=== PATIENT | female | born 1950 | race Hispanic/Latino ===

== ENCOUNTER 2016-10-06 19:04 | Inpatient (IN) | payer MEDICARE, OTHER ==
--- NOTE | 2016-10-06 19:15 | ED PDOC ---
Arrival/HPI <Ji Huynh - Last Filed: 10/06/16 21:29> - General Historian: Patient <Nita Simeon - Last Filed: 10/07/16 01:23> - General Time Seen by Provider: 10/06/16 19:10 - History of Present Illness Narrative History of Present Illness (Text): 10/06/16 19:12 66yo female bib the for psych evaluation. The notes history of psychiatric sickness. states she became very anxious and agitated at home this morning. states patient takes her medication. Denies drug and alcohol use. Denies hallucination, SI/HI, any somatic complaint. (Nita Simeon) Past Medical History - Provider Review Nursing Documentation Reviewed: Yes - Infectious Disease Hx of Infectious Diseases: None - Tetanus Immunization Tetanus Immunization: Unknown - Past Medical History Past Medical History: No Previous - Cardiac Hx Pacemaker: No - Neurological Hx Paralysis: No - Hematological/Oncological Hx Blood Transfusions: No Hx Blood Transfusion Reaction: No - Musculoskeletal/Rheumatological Hx Musculoskeletal Disorders: No - Psychiatric Hx Emotional Abuse: No Hx Physical Abuse: No Hx Substance Use: No - Past Surgical History Past Surgical History: No Previous - Surgical History Other/Comment: Anal Fistula repair - Anesthesia Hx Anesthesia Reactions: No Hx Malignant Hyperthermia: No - Suicidal Assessment Feels Threatened In Home Enviroment: No <Nita Simeon - Last Filed: 10/07/16 01:23> Family/Social History - Physician Review Nursing Documentation Reviewed: Yes Family/Social History: Unknown Family HX Smoking Status: Light Smoker < 10 Cigarettes Daily Hx Alcohol Use: No Hx Substance Use: No <Nita Simeon - Last Filed: 10/07/16 01:23> Allergies/Home Meds <Ji Huynh - Last Filed: 10/06/16 21:29> <Nita Simeon - Last Filed: 10/07/16 01:23> Allergies/Adverse Reactions: Allergies No Known Allergies Allergy (Verified 01/25/14 07:51) Home Medications: Home Meds Medication Instructions Recorded Confirmed Divalproex [Depakote] 500 mg PO BID 01/25/14 10/06/16 QUEtiapine [SEROquel] 300 mg PO BID 01/25/14 10/06/16 Polyethylene Glycol 3350 [Miralax] 17 gm PO DAILY 04/11/16 10/06/16 ALPRAZolam [Xanax] 1 mg PO QAM 10/06/16 10/06/16 ALPRAZolam [Xanax] 3 mg PO HS 10/06/16 10/06/16 Review of Systems - Physician Review All systems were reviewed & negative as marked: Yes - Review of Systems Constitutional: Normal Eyes: Normal ENT: Normal Respiratory: Normal Cardiovascular: Normal Gastrointestinal: Normal Genitourinary Female: Normal Musculoskeletal: Normal Skin: Normal Neurological: Normal Endocrine: Normal Hemo/Lymphatic: Normal Psychiatric: Anxiety <Diru,Happiness A - Last Filed: 10/07/16 01:23> Physical Exam Vital Signs Reviewed: Yes Temperature: Afebrile Blood Pressure: Normal Pulse: Regular Respiratory Rate: Normal Appearance: Positive for: Well-Appearing, Non-Toxic, Comfortable Pain Distress: None Mental Status: Positive for: Alert and Oriented X 3 - Systems Exam Head: Present: Atraumatic, Normocephalic Pupils: Present: PERRL Extroacular Muscles: Present: EOMI Conjunctiva: Present: Normal Mouth: Present: Moist Mucous Membranes Neck: Present: Normal Range of Motion Respiratory/Chest: Present: Clear to Auscultation, Good Air Exchange. No: Respiratory Distress, Accessory Muscle Use Cardiovascular: Present: Regular Rate and Rhythm, Normal S1, S2. No: Murmurs Abdomen: Present: Normal Bowel Sounds. No: Tenderness, Distention, Peritoneal Signs Back: Present: Normal Inspection Upper Extremity: Present: Normal Inspection. No: Cyanosis, Edema Lower Extremity: Present: Normal Inspection. No: Edema Neurological: Present: GCS=15, CN II-XII Intact, Speech Normal Skin: Present: Warm, Dry, Normal Color. No: Rashes Psychiatric: Present: Alert, Oriented x 3, Normal Insight, Normal Concentration , Anxious, Agitated <Diru,Happiness A - Last Filed: 10/07/16 01:23> Vital Signs Temp Pulse Pulse Resp BP Pulse Ox 10/07/16 01:14 98.0 F 88 16 132/72 99 10/06/16 23:37 97.9 F 94 H 18 148/87 100 10/06/16 22:20 97.6 F 103 H 103 H 20 169/92 H 10/06/16 21:23 103 H 20 169/92 H 98 10/06/16 19:35 97.6 F 115 H 25 H 178/103 H 99 Medical Decision Making <Ji Huynh - Last Filed: 10/06/16 21:29> <Nita Simeon - Last Filed: 10/07/16 01:23> ED Course and Treatment: 10/06/16 20:52 66yo female bib the for psych evaluation. Patient was agitated on arrival. PES screener was called immediately to evaluate pt. He saw pt in ED. [facility] Dr. Vidal requested that pt be screened by [facility] screener. Pt have hyponatremia on evaluation of lab. She was given 3% sodium and plan was to admit pt to correct hyponatremia. Case was DW Dr. Belle and he accepted pt for admission. Per the resident, pt's and the patient declined admission. Threatening to leave. Pt was advised that she will be screened by PES screener. Both patient and her later changed they mind. Agreed to be admitted for hyponatermia. The resident , Tony was made aware of the decision. (Nita Simeon) - Lab Interpretations Lab Results: 10/06/16 19:56 10/06/16 19:56 Lab Results 10/06/16 19:56: Alcohol, Quantitative < 10 10/06/16 19:56: Salicylates < 1 L, Acetaminophen < 10.0 L 10/06/16 19:56: Sodium 118 L*, Potassium 4.4, Chloride 83 L, Carbon Dioxide 25, Anion Gap 14, BUN 12, Creatinine 0.7, Est GFR ( Amer) > 60, Est GFR (Non- Af Amer) > 60, Random Glucose 94, Calcium 9.3, Total Bilirubin 0.6, AST 24, ALT 30, Alkaline Phosphatase 77, Total Protein 7.7, Albumin 4.2, Globulin 3.5, Albumin/Globulin Ratio 1.2 10/06/16 19:56: WBC 10.4 D, RBC 4.55, Hgb 12.4, Hct 34.9 L, MCV 76.7 L, MCH 27.3, MCHC 35.5, RDW 14.6 H, Plt Count 278, MPV 9.4, Gran % 67.2, Lymph % (Auto ) 25.1, Tripp % (Auto) 6.9 H, Eos % (Auto) 0.7 L, Baso % (Auto) 0.1, Gran # 7.00 H, Lymph # 2.6, Tripp # 0.7 H, Eos # 0.1, Baso # 0.01 - Medication Orders Current Medication Orders: Sodium Chloride (Hypertonic Saline 3%) 500 mls @ 50 mls/hr IV .Q10H [facility] Last Admin: 10/06/16 23:22 Dose: 50 mls/hr Discontinued Medications Sodium Chloride (Sodium Chloride 0.45%) 1,000 mls @ 50 mls/hr IV .Q20H [facility] Last Admin: 10/06/16 21:30 Dose: 50 mls/hr Lorazepam (Ativan) 1 mg IM ONCE ONE PRN Reason: Protocol Stop: 10/06/16 19:20 Last Admin: 10/06/16 19:21 Dose: 1 mg Pneumococcal Polyvalent Vaccine (Pneumovax 23 Vaccine) 0.5 ml IM .ONCE ONE Stop: 10/06/16 22:28 Last Admin: 10/06/16 23:25 Dose: - PA / [employer] / Resident Statement DAVID has reviewed & agrees with the documentation as recorded. DAVID has examined the patient and agrees with the treatment plan. <Ji Huynh - Last Filed: 10/06/16 21:29> Disposition/Present on Arrival <Ji Huynh - Last Filed: 10/06/16 21:29> - Present on Arrival Any Indicators Present on Arrival: No History of DVT/PE: No History of Uncontrolled Diabetes: No Urinary Catheter: No History Surgical Site Infection Following: None - Disposition Have Diagnosis and Disposition been Completed?: Yes Disposition Time: 22:00 <Nita Simeon - Last Filed: 10/07/16 01:23> - Disposition Diagnosis: Hyponatremia, Bipolar 1 disorder Disposition: HOSPITALIZED Patient Problems: Current Active Problems Problem Status Onset Bipolar 1 disorder Acute Hyponatremia Acute Condition: FAIR
[2016-10-06 20:05] LABS: ADD MANUAL DIFF? NO
[2016-10-06 20:13] LABS: BASO # 0.01 [, K/mm3] (0.0-2.0); BASO % 0.1 % (0.0-3.0); EOS # 0.1 (0.0-0.7); EOS % 0.7 % (1.5-5.0); GRAN % 67.2 % (50.0-68.0); HEMATOCRIT 34.9 % (36.0-48.0); LYMPH # 2.6 (1.2-3.4); LYMPH % 25.1 % (22.0-35.0); MEAN CELL VOLUME 76.7 fL (80.0-105.0); MEAN CORPUSCULAR HEMOGLOBIN 27.3 pg (25.0-35.0); MEAN CORPUSCULAR HGB CONC 35.5 g/dl (31.0-37.0); MEAN PLATELET VOLUME 9.4 fl (7.0-11.0); MONO # 0.7 (0.1-0.6); MONO % 6.9 % (1.0-6.0); PLATELET COUNT 278 [, 10^3/uL] (120.0-450.0); RED CELL DISTRIBUTION WIDTH 14.6 % (11.5-14.5); WHITE BLOOD COUNT 10.4 [, 10^3/ul] (4.5-11.0)
[2016-10-06 20:32] LABS: ALB/GLOB RATIO 1.2 (1.1-1.8); ALKALINE PHOSPHATASE 77 U/L (38-133); ALT/SGPT 30 U/L (7-56); AST/SGOT 24 U/L (15-39); BILIRUBIN,TOTAL 0.6 mg/dL (0.2-1.3); BLOOD UREA NITROGEN 12 mg/dL (7-21); CALCIUM 9.3 mg/dL (8.4-10.5); CARBON DIOXIDE 25 mmol/L (21-33); CHLORIDE 83 mmol/L (98-107); GFR AFRICAN-AMERICAN > 60; GLUCOSE,RANDOM 94 mg/dL (70-110); POTASSIUM 4.4 mmol/L (3.6-5.0); TOTAL PROTEIN 7.7 g/dL (5.8-8.3)
[2016-10-06 20:39] LABS: SODIUM 118 mmol/L (132-148)
[2016-10-06] MEDS ORDERED: Sodium Chloride 0.45% 1,000 ML IV SCH (20:45)
[2016-10-06 22:22] LABS: URINE BILIRUBIN NEGATIVE (NEGATIVE); URINE BLOOD LARGE (NEGATIVE); URINE GLUCOSE (UA) NEGATIVE (NEGATIVE); URINE KETONE NEGATIVE (NEGATIVE); URINE LEUKOCYTE ESTERASE MODERATE Leu/uL (NEGATIVE); URINE PROTEIN NEGATIVE mg/dL (<30 mg/dL); URINE UROBILINOGEN 0.2 E.U./dL (<1 E.U./dL)
[2016-10-06 22:23] LABS: URINE APPEARANCE SL CLOUDY (CLEAR); URINE COLOR YELLOW (YELLOW)
[2016-10-06 22:27] VITALS: BMI 30.9
[2016-10-06] MEDS ORDERED: Pneumococcal 23-Valent Vaccine IM ONE (22:27)
[2016-10-06] MEDS ORDERED: Sodium Chloride 3% 500 ML IV SCH (22:30)
[2016-10-07] MEDS ORDERED: Sodium Chloride 0.9% 1,000 ML IV SCH (02:15)
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
[2016-10-07 04:28] LABS: BLOOD UREA NITROGEN 10 mg/dL (7-21); CALCIUM 9.6 mg/dL (8.4-10.5); CARBON DIOXIDE 28 mmol/L (21-33); CHLORIDE 91 mmol/L (98-107); GFR AFRICAN-AMERICAN > 60; GLUCOSE,RANDOM 90 mg/dL (70-110); POTASSIUM 3.9 mmol/L (3.6-5.0); SODIUM 128 mmol/L (132-148)
[2016-10-07 08:52] LABS: BLOOD UREA NITROGEN 8 mg/dL (7-21); CALCIUM 9.5 mg/dL (8.4-10.5); CARBON DIOXIDE 28 mmol/L (21-33); CHLORIDE 92 mmol/L (98-107); GFR AFRICAN-AMERICAN > 60; GLUCOSE,RANDOM 106 mg/dL (70-110); POTASSIUM 4.3 mmol/L (3.6-5.0); SODIUM 128 mmol/L (132-148)
[2016-10-07] MEDS: Divalproex 500 mg DR(BID formulation) PO SCH ×2 (10:43→18:39)
[2016-10-07] MEDS: POLYETHYLENE GLYCOL 3350 17 GM/Dose PACKET PO SCH (10:44)
[2016-10-07 11:01] LABS: BLOOD UREA NITROGEN 9 mg/dL (7-21); CALCIUM 9.4 mg/dL (8.4-10.5); CARBON DIOXIDE 27 mmol/L (21-33); CHLORIDE 92 mmol/L (98-107); GFR AFRICAN-AMERICAN > 60; GLUCOSE,RANDOM 116 mg/dL (70-110); POTASSIUM 4.5 mmol/L (3.6-5.0); SODIUM 128 mmol/L (132-148)
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
[2016-10-07 14:38] LABS: BLOOD UREA NITROGEN 9 mg/dL (7-21); CALCIUM 9.3 mg/dL (8.4-10.5); CARBON DIOXIDE 27 mmol/L (21-33); CHLORIDE 91 mmol/L (98-107); GFR AFRICAN-AMERICAN > 60; GLUCOSE,RANDOM 123 mg/dL (70-110); POTASSIUM 4.4 mmol/L (3.6-5.0); SODIUM 127 mmol/L (132-148)
--- NOTE | 2016-10-07 14:55 | CARD ---
APPROVED REPORT EKG Measurement Heart [id number] <Conclusion> Normal sinus rhythm Biatrial enlargement Abnormal ECG
[2016-10-07 15:22] LABS: BLOOD UREA NITROGEN 9 mg/dL (7-21); CALCIUM 9.4 mg/dL (8.4-10.5); CARBON DIOXIDE 29 mmol/L (21-33); CHLORIDE 92 mmol/L (98-107); GFR AFRICAN-AMERICAN > 60; GLUCOSE,RANDOM 91 mg/dL (70-110); POTASSIUM 4.6 mmol/L (3.6-5.0); SODIUM 128 mmol/L (132-148)
[2016-10-07 21:09] LABS: BLOOD UREA NITROGEN 11 mg/dL (7-21); CALCIUM 9.9 mg/dL (8.4-10.5); CARBON DIOXIDE 29 mmol/L (21-33); CHLORIDE 91 mmol/L (98-107); GFR AFRICAN-AMERICAN > 60; GLUCOSE,RANDOM 87 mg/dL (70-110); POTASSIUM 4.3 mmol/L (3.6-5.0); SODIUM 129 mmol/L (132-148)
[2016-10-08 05:50] VITALS: O2SAT 100
[2016-10-08 06:05] LABS: ADD MANUAL DIFF? NO
[2016-10-08 06:43] LABS: CALCIUM 9.1 mg/dL (8.4-10.5); POTASSIUM 4.3 mmol/L (3.6-5.0)
[2016-10-08 07:22] LABS: BASO # 0.02 [, K/mm3] (0.0-2.0); BASO % 0.3 % (0.0-3.0); EOS # 0.1 (0.0-0.7); GRAN # 2.65 (1.4-6.5); GRAN % 43.5 % (50.0-68.0); HEMATOCRIT 37.7 % (36.0-48.0); LYMPH # 2.7 (1.2-3.4); LYMPH % 44.9 % (22.0-35.0); MEAN CELL VOLUME 80.4 fL (80.0-105.0); MEAN CORPUSCULAR HEMOGLOBIN 27.1 pg (25.0-35.0); MEAN CORPUSCULAR HGB CONC 33.7 g/dl (31.0-37.0); MEAN PLATELET VOLUME 10.1 fl (7.0-11.0); MONO # 0.6 (0.1-0.6); MONO % 9.3 % (1.0-6.0); PLATELET COUNT 211 [, 10^3/uL] (120.0-450.0); RED CELL DISTRIBUTION WIDTH 15.6 % (11.5-14.5); WHITE BLOOD COUNT 6.1 [, 10^3/ul] (4.5-11.0)
--- NOTE | 2016-10-08 08:53 | CON ---
DATE: 10/07/2016 The patient is a 66-year-old female with a prior psychiatric history, likely schizoaffective versus bipolar disorder, multiple hospitalizations, as well as poor compliance with medications of De pakote, Seroquel, and Xanax prescribed by Dr. Cox. No history of reported suicide attempts who was brought in with her to the Emergency Room on 10/06/2016, as the patient has been having diffic ulty with sleeping and presenting loud with rapid speech and anxiety. Reports also indicate that letitia garcia noted that the patient would drink a lot of water at home as well. While they were in the Emergency Room, they did demand to be discharged from the Emergency Room befor e comprehensive testing and recommendations could be established, however, eventually agreed to be me dically hospitalized after the patient was found to have notable hyponatremia. During this time, rd or to this decision, she was to be screened by [facility] because this provider recei eulogio information about her disorganization, as well as the fact that the patient reportedly was recent ly discharged from [place] in the last few weeks. I meet with the patient at bedside today, and the patient is a little calmer, a little bit more coher ent than her reported presentation in the Emergency Room and by the clinician who signed out to me ye sterday. She is aware that it is October and that it is 2016, and that she is in a hospital. However, s he does not know that she was hospitalized for hyponatremia. She believes it was because she has not been able to sleep, and the patient repeatedly requests that I provide her "a shot to help me sleep. " The patient reports that she has been taking the medications of Depakote and Seroquel as prescribe d. However, she is still not sleeping at all at night. She indicates that she is very tired and has been irritable and agitated because of her fatigue, and that she desperately would like to sleep. She denies any hopelessness or suicidal thoughts, but she does admit to some depression and anxiety r elated to her 's diagnosis of bone cancer. She indicates that he lost his right hand because of this, and that she is "desperate for him." Her thought processes are somewhat scattered, but she can be redirected with general consistency of responses, and her main concern is her inability to sle ep. Nursing reports indicate that the patient has been loud on the unit, was ____ yelling in the la lway, but calmed down with staff redirection, and generally appeared a little bizarre. The patient w as not hallucinating and denies hallucinations when I spoke with her today. She does appear anxious, stressed, highly emotional, and would be difficult to maintain if not in an enclosed setting is my i ntuition. Her insight and judgment are considered to be poor. VITAL SIGNS: Reviewed. They are within normal limits at 6:00 a.m. this morning. LABORATORIES: Reviewed. Notably, the patient came in with a sodium of 118, up to 128 by 8 a.m. this morning. Otherwise, her chemistry panel is within normal limits except for chloride was just 83. S he does show a large amount of blood and leukocyte esterase, and moderate amount in her urine, as wel l, and UDS is only positive for benzos. RELEVANT MEDICATION: Psychiatric medications include Xanax 1 mg in the morning and 3 mg at night, De pakote 500 mg b.i.d., Seroquel 300 mg p.o. b.i.d. IMPRESSION: The patient does have a history of, as per clinician who spoke with me in the Emergency Room, a recent long-term hospitalization at [place] in which she was just discharged a week or two ago. Likely has bipolar disorder, mixed episode versus schizoaffective disorder, mixed episode. I cannot rule out the contribution of delirium confounding the diagnosis of her current presentation. The patient does have notable electrolyte balance and urine abnormalities. RECOMMENDATIONS: I am asking should continue to treat the patient's hyponatremia and rule out medica l causes, although it does appear that the patient does have a history of excessive water intake per . However, it is unclear if her is a good historian, as he appeared to also want the patient to be discharged yesterday from the Emergency Room without full medical treatment of his . In this regard, it is difficult to completely trust his account of her behavior, as his judgment a ppeared to be impaired in this respect. Again, medicine should follow up on determining whether there are medical causes to the patient's hyp onatremia. Please note that hyponatremia may be associated rarely with Depakote and with Seroquel. However, there is no indication that these medications are causing this sort of side effect at this time, and will continue with them, and increase the Seroquel to 300 in the morning and 400 at night. I would also like to increase the Depakote, but review of the records does not indicate or does not show that Depakote level has been obtained for some reason. Thus, provider will order Depakote level and go from there. Please note that whenever the patient comes to the Emergency Room with altered mental status, deranged metabolites, Depakote level should always be checked, especially if she is a poor historian and has poor impulse control. The patient is a candidate for the psychiatric unit once she is medically cleared. However, it is un clear whether she will be willing to sign in to the psychiatric unit at this time, and this provider has doubts about her capacity to understand the pros and cons of a voluntary psychiatric admission. We will consider [facility] screening once she is medically cleared in this respect. As of now, the patient does not have capacity to sign out AMA, and needs to be maintained on a 1:1. Taylor Vidal MD cc: [id number] TT: 10/07/2016 11:34:01 Confirmation # [id number] Dictation # [id number] jn
[2016-10-08] MEDS: Divalproex 500 mg DR(BID formulation) PO SCH ×2 (09:56→18:03)
[2016-10-08] MEDS: POLYETHYLENE GLYCOL 3350 17 GM/Dose PACKET PO SCH (09:57)
[2016-10-08 11:32] LABS: URINE APPEARANCE CLEAR (CLEAR); URINE BILIRUBIN NEGATIVE (NEGATIVE); URINE BLOOD NEGATIVE (NEGATIVE); URINE COLOR YELLOW (YELLOW); URINE GLUCOSE (UA) NEGATIVE (NEGATIVE); URINE KETONE NEGATIVE (NEGATIVE); URINE LEUKOCYTE ESTERASE NEGATIVE Leu/uL (NEGATIVE); URINE PROTEIN NEGATIVE mg/dL (<30 mg/dL); URINE UROBILINOGEN 0.2 E.U./dL (<1 E.U./dL)
--- NOTE | 2016-10-08 11:39 | CP.PCM.PN ---
Subjective - Date & Time of Evaluation Date of Evaluation: 10/08/16 Time of Evaluation: 11:28 - Subjective Subjective: Follow up Nephrology Consultation Note Assessment: hypo-osmolar euvolemic hyponatremia predominantly due to increased water intake and possibly some contribution by her psych meds Bipolar Disorder blood on dipstick but very few RBC suggests myoglobinuria less likely hemoglobinuria (as stable and normal hb) Mild Acute kidney injury ? hemodynamic Plan continue with current oral water restriction. her Serum Na has improved. due to rise in her S.creat, will give Normal saline 1 L Monitor Input/Output. will repeat UA and urine Na, osmol. if continue to have blood on dipstick without RBC then check CPK level. Further work up/management for bipolar disorder as per primary team. Thanks for allowing me to participate in care of your patient. Please call if any Qs. f/up in office with me [address] Alexis Dixon ([address] [place] [address]) Office: [phone] Subjective: Noted events overnight. Patients feels okay. Denies chest pain, palpitation, shortness of breath, leg swelling. on oral fluid restriction 1000 mL/day Physical Examination: General Appearance: Comfortable, in no acute respiratory distress, co- operative. Vitals reviewed and noted as below Lungs: Normal respiratory rate/effort. Breath sounds bilateral equal and clear Heart: Normal rate. s1s2 normal. No rub or gallop. Extremities: no edema. Neurological: Patient is alert, awake and oriented to person, place and time. No focal deficit. Strength bilateral appropriate and equal Skin: Warm and dry. Normal turgor. No rash. Palpitation: Normal elasticity for age Abdomen: Abdomen is soft. Bowel sounds +. There is no abdominal tenderness, no guarding/rigidity or organomegaly : kidney or bladder not palpable Labs/imaging reviewed. Past medical history, past surgical history, family history, social history, allergy reviewed and noted as below Objective - Vital Signs/Intake and Output Vital Signs (last 24 hours): Temp Pulse Resp BP Pulse Ox 97.5 F L 89 20 117/66 100 10/08/16 05:49 10/08/16 10:00 10/08/16 05:49 10/08/16 05:49 10/08/16 05:49 Intake and Output: 10/08/16 10/08/16 06:59 18:59 Intake Total 0 Balance 0 - Medications Medications: Current Medications Alprazolam (Xanax) 1 mg PO QAM [facility] PRN Reason: Protocol Last Admin: 10/08/16 09:57 Dose: 1 mg Alprazolam (Xanax) 3 mg PO HS [facility] PRN Reason: Protocol Last Admin: 10/07/16 21:05 Dose: 3 mg Divalproex Sodium (Depakote Dr(*Bid*)) 500 mg PO BID [facility] Last Admin: 10/08/16 09:56 Dose: 500 mg Haloperidol (Haldol) 2 mg PO Q6 PRN; Protocol PRN Reason: Agitation Polyethylene Glycol (Miralax) 17 gm PO DAILY [facility] Last Admin: 10/08/16 09:57 Dose: 17 gm Quetiapine Fumarate (Seroquel) 300 mg PO QAM [facility] Last Admin: 10/08/16 09:57 Dose: 300 mg Quetiapine Fumarate (Seroquel) [address] [facility] PRN Reason: Protocol Last Admin: 10/07/16 21:05 Dose: 400 mg - Labs Labs: 10/08/16 05:30 10/08/16 05:30
[2016-10-08] MEDS: Sodium Chloride 0.9% 1,000 ML IV SCH ×2 (12:37→22:20)
--- NOTE | 2016-10-08 15:20 | CP.PCM.PN ---
<Nubia Onofre - Last Filed: 10/08/16 15:39> Subjective - Date & Time of Evaluation Date of Evaluation: 10/08/16 Time of Evaluation: 07:40 - Subjective Subjective: Pt seen and evaluated at bedside. Pt denies chest pain, N/V, SOB, abdominal pain, hematuria, or pyuria. Afebrile overnight. As per nursing, drank 900 ml of water this am. Objective - Vital Signs/Intake and Output Vital Signs (last 24 hours): Temp Pulse Resp BP Pulse Ox 98.3 F 93 H 20 110/79 100 10/08/16 12:00 10/08/16 14:00 10/08/16 12:00 10/08/16 12:00 10/08/16 05:49 Intake and Output: 10/08/16 10/08/16 06:59 18:59 Intake Total 0 720 Balance 0 720 - Medications Medications: Current Medications Alprazolam (Xanax) 1 mg PO QAM [facility] PRN Reason: Protocol Last Admin: 10/08/16 09:57 Dose: 1 mg Alprazolam (Xanax) 3 mg PO [facility] PRN Reason: Protocol Last Admin: 10/07/16 21:05 Dose: 3 mg Divalproex Sodium (Depakote Dr(*Bid*)) 500 mg PO BID [facility] Last Admin: 10/08/16 09:56 Dose: 500 mg Haloperidol (Haldol) 2 mg PO Q6 PRN; Protocol PRN Reason: Agitation Sodium Chloride (Sodium Chloride 0.9%) 1,000 mls @ 100 mls/hr IV .Q10H [facility] Last Admin: 10/08/16 12:37 Dose: 100 mls/hr Polyethylene Glycol (Miralax) 17 gm PO DAILY [facility] Last Admin: 10/08/16 09:57 Dose: 17 gm Quetiapine Fumarate (Seroquel) 300 mg PO QAM [facility] Last Admin: 10/08/16 09:57 Dose: 300 mg Quetiapine Fumarate (Seroquel) 400 mg PO HS [facility] PRN Reason: Protocol Last Admin: 10/07/16 21:05 Dose: 400 mg - Labs Labs: 10/08/16 05:30 10/08/16 05:30 - Constitutional Appears: No Acute Distress, Confused - Head Exam Head Exam: ATRAUMATIC, NORMOCEPHALIC - Eye Exam Eye Exam: EOMI, Normal appearance - Respiratory Exam Respiratory Exam: Clear to Ausculation Bilateral, NORMAL BREATHING PATTERN - Cardiovascular Exam Cardiovascular Exam: +S1, +S2. absent: Tachycardia - GI/Abdominal Exam GI & Abdominal Exam: Soft. absent: Tenderness - Exam External exam: absent: Ecchymosis, Lacerations - Extremities Exam Extremities Exam: Normal Capillary Refill. absent: Tenderness - Neurological Exam Neurological Exam: Alert, Awake - Skin Skin Exam: Intact, Warm Assessment and Plan - Assessment and Plan (Free Text) Plan: 66 year old female with a PMH of psych illness who is brought in by her for sandeep. Admitted for hyponatremia of 118. 1. 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 Sánchez consulted Neurochecks q4x24 Vitals q4 Seizure precautions Pending renal U/S NS IV 1L 100ml/hr qd urine osmolarity is 174, serum osmol is 270, and random urine sodium is 10. 2. Psych illness Continue home medications Psych Dr. Domínguez consulted 3. Constipation Continue home miralax DVT ppx: SCDs refused by pt today, so heparin 5000u q12 ordered Patient was seen and examined and case/plan was discussed at length with attending physician. <Miceky Castro - Last Filed: 10/08/16 16:19> Objective - Vital Signs/Intake and Output Vital Signs (last 24 hours): Temp Pulse Resp BP Pulse Ox 98.3 F 93 H 20 110/79 100 10/08/16 12:00 10/08/16 14:00 10/08/16 12:00 10/08/16 12:00 10/08/16 05:49 Intake and Output: 10/08/16 10/08/16 06:59 18:59 Intake Total 0 720 Balance 0 720 - Medications Medications: Current Medications Alprazolam (Xanax) 1 mg PO QAM [facility] PRN Reason: Protocol Last Admin: 10/08/16 09:57 Dose: 1 mg Alprazolam (Xanax) 3 mg PO HS [facility] PRN Reason: Protocol Last Admin: 10/07/16 21:05 Dose: 3 mg Divalproex Sodium (Gabriele Dwyer(*Bid*)) 500 mg PO BID [facility] Last Admin: 10/08/16 09:56 Dose: 500 mg Haloperidol (Haldol) 2 mg PO Q6 PRN; Protocol PRN Reason: Agitation Heparin Sodium (Porcine) (Heparin) 5,000 units SC Q12 [facility] PRN Reason: Protocol Sodium Chloride (Sodium Chloride 0.9%) 1,000 mls @ 100 mls/hr IV .Q10H [facility] Last Admin: 10/08/16 12:37 Dose: 100 mls/hr Polyethylene Glycol (Miralax) 17 gm PO DAILY [facility] Last Admin: 10/08/16 09:57 Dose: 17 gm Quetiapine Fumarate (Seroquel) 300 mg PO QAM [facility] Last Admin: 10/08/16 09:57 Dose: 300 mg Quetiapine Fumarate (Seroquel) 400 mg PO HS [facility] PRN Reason: Protocol Last Admin: 10/07/16 21:05 Dose: 400 mg - Labs Labs: 10/08/16 05:30 10/08/16 05:30 Attending/Attestation - Attestation I have personally seen and examined this patient.: Yes I have fully participated in the care of the patient.: Yes I have reviewed all pertinent clinical information, including history, physical exam and plan: Yes Notes (Text): 10/08/16 16:15 66 year old female with past medical history of prior psychiatric illness (? bipolar) who was brought in by her for altered mental status. 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 Her sodium has improved to 130 today. Continue with fluid restriction as per nephrology. She was also seen by psychiatrist. I spoke with Dr. Domínguez as well as the patient's who is currently at bedside. Her mental status has improved to baseline as per . Today she has mild ESTEFANI. She is started on iv fluids and renal ultrasound was ordered which is negative. is at bedside and questions were answered. Possible d/c planning by tomorrow if labs continue to improve. Mickey Castro MD Hospitalist.
--- NOTE | 2016-10-08 16:05 | US ---
PROCEDURE: Ultrasound of the Kidneys HISTORY: Acute Kidney Injury COMPARISON: None available. TECHNIQUE: Sonogram of the kidneys. FINDINGS: RIGHT KIDNEY: Measures: 9.3 x 5.2 x 3.7 cm. Normal in size, contour and echogenicity. No stone, solid mass lesion or hydronephrosis visualized. LEFT KIDNEY: Measures: 10.1 x 5.4 x 4.7 cm. Normal in size, contour and echogenicity. No stone, solid mass lesion or hydronephrosis visualized. OTHER FINDINGS: None. IMPRESSION: Unremarkable renal sonogram.
--- NOTE | 2016-10-08 18:32 | PN ---
DATE: 10/08/2016 Shortly, the patient is a 66-year-old female with prior psychiatric history, most likely sc hizoaffective disorder versus bipolar disorder, multiple hospitalizations into the psychiatric inpati ent unit as well, as per Dr. Vidal's notes, poor compliance with medication Depakote, Seroquel and Xa nax prescribed by Dr. Cox. The patient does not have history of suicidal attempts. The patient wa s admitted to the medical floor for evaluation of low sodium level and possible psychogenic polydipsi a. The patient was seen initially by Dr. Vidal for altered mental status. A 1:1 was recommended and doses of medications were adjusted. The patient was followed up by this newswriter. Discussed with the medical team as well as nursing staff. As per nursing staff report, the patient does not exhibit an y agitated or aggressive behavior. Thought process is coherent. The patient has some neurocognitive disorder and child-like demeanor. The patient reported that she does feel better. The patient is a jensen of her medical issues. The patient knows that she is on water restriction. The patient knows t hat she needs to take only 1 liter a day max. The patient also reported that she is compliant with t he medications. She does not want to sign herself into the psychiatric inpatient unit. The patient wants to be discharged back home but, as per medical team, her sodium level is not within normal limi ts and most likely patient will stay here in the hospital for another day. VITAL SIGNS: Reviewed. Temperature 98.3, pulse is 93, blood pressure 110/79, respirations 20, oxyge n saturation is 100. MEDICATIONS: Reviewed. Xanax 1 mg in the morning time and 3 mg at the nighttime, Depakote 500 mg tw ice a day, Haldol 2 mg q. 6 hours as needed (the patient did not have any injection of Haldol or p.o. Haldol), MiraLax, Seroquel was increased to 400 mg at the nighttime and 300 mg in the morning time, and sodium chloride. LABORATORIES: Reviewed. Chemistry: Sodium was 130 today. Urinalysis: Leukocyte esterase is high, blood is large. Toxicology: Benzodiazepines are positive and Depakote level was 25. Most likely t he patient was not compliant with the medications. MENTAL STATUS EXAMINATION: The patient appears to be alert, childlike demeanor, loud voice, intense eye contact. Speech was loud, some poverty of speech and thought. Thought process is concrete. Tho ught content: The patient denied visual, auditory, tactile hallucinations. Denied paranoid ideation s, denied thoughts of harming herself or others, denied intent or plan. Insight and judgment are clements ited but improving. Impulses are well controlled. IMPRESSION: As per history, the patient has schizoaffective disorder versus bipolar disorder. The p atient also has multiple medical issues. 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 PLAN: Continue current management. Continue current medications. dental resident was advised to g lizeth a call to patient's and ask if patient is at her baseline function, but based on Dr. Izabela parmar's notes she also has some cognitive limitations as well. Social work evaluation is recommended. T his newswriter offered the patient admission to the psychiatric inpatient unit. The patient declined dale t offer. At present moment, patient is not psychotic. The patient is not agitated. The patient den ied thoughts of killing herself or others. The patient does not meet the criteria for [facility] screening process. Case was discussed with the medical team. Should you have any quest ions, give me a call back. This newswriter will follow up and advise accordingly. Henna Domínguez MD cc: [id number] TT: 10/08/2016 18:31:56 Confirmation # [id number] Dictation # [id number] mickey
[2016-10-09 06:09] LABS: HEMATOCRIT 35.9 % (36.0-48.0); MEAN CELL VOLUME 80.9 fL (80.0-105.0); MEAN CORPUSCULAR HGB CONC 33.4 g/dl (31.0-37.0); MEAN PLATELET VOLUME 9.1 fl (7.0-11.0); PLATELET COUNT 186 [, 10^3/uL] (120.0-450.0); RED CELL DISTRIBUTION WIDTH 15.3 % (11.5-14.5); WHITE BLOOD COUNT 4.8 [, 10^3/ul] (4.5-11.0)
[2016-10-09 06:22] LABS: ADD MANUAL DIFF? YES
[2016-10-09 06:27] LABS: BLOOD UREA NITROGEN 16 mg/dL (7-21); CALCIUM 8.5 mg/dL (8.4-10.5); CARBON DIOXIDE 27 mmol/L (21-33); CHLORIDE 99 mmol/L (95-110); GFR AFRICAN-AMERICAN > 60; GLUCOSE,RANDOM 91 mg/dL (70-110); POTASSIUM 4.3 mmol/L (3.6-5.0); SODIUM 130 mmol/L (132-148)
[2016-10-09 07:03] LABS: EOSINOPHIL 4 % (0.0-3.0); PLATELET ESTIMATE NORMAL (NORMAL)
[2016-10-09 07:04] LABS: NEUTROPHIL 38 % (50.0-70.0)
[2016-10-09] MEDS: POLYETHYLENE GLYCOL 3350 17 GM/Dose PACKET PO SCH (09:47)
[2016-10-09] MEDS: Divalproex 500 mg DR(BID formulation) PO SCH (09:47)
--- NOTE | 2016-10-09 10:56 | CP.PCM.DIS ---
<Nubia Onofre - Last Filed: 10/09/16 13:26> Provider - Provider Date of Admission: 10/06/16 21:29 Attending physician: Mickey Castro MD Primary care physician: Harley Mortensen MD Consults: Dr. Dixon, Dr. Domínguez Time Spent in preparation of Discharge (in minutes): 37 Hospital Course - Lab Results Lab Results: Micro Results 10/06/16 21:53 Urine,Clean Catch Urine Culture - Final No Growth (<1,000 CFU/ML) Most Recent Lab Values WBC 4.8 10^3/ul (4.5-11.0) D 10/09/16 05:00 RBC 4.44 10^6/uL (3.5-6.1) 10/09/16 05:00 Hgb 12.0 gm/dL (12.0-16.0) 10/09/16 05:00 Hct 35.9 % (36.0-48.0) L 10/09/16 05:00 MCV 80.9 fL (80.0-105.0) 10/09/16 05:00 MCH 27.0 pg (25.0-35.0) 10/09/16 05:00 MCHC 33.4 g/dl (31.0-37.0) 10/09/16 05:00 RDW 15.3 % (11.5-14.5) H 10/09/16 05:00 Plt Count 186 10^3/uL (120.0-450.0) 10/09/16 05:00 MPV 9.1 fl (7.0-11.0) 10/09/16 05:00 Gran % 43.5 % (50.0-68.0) L 10/08/16 05:30 Lymph % (Auto) 44.9 % (22.0-35.0) H 10/08/16 05:30 [place] % (Auto) 9.3 % (1.0-6.0) H 10/08/16 05:30 Eos % (Auto) 2.0 % (1.5-5.0) 10/08/16 05:30 Baso % (Auto) 0.3 % (0.0-3.0) 10/08/16 05:30 Gran # 2.65 (1.4-6.5) 05/08/17 05:30 Lymph # 2.7 (1.2-3.4) 10/08/16 05:30 [place] # 0.6 (0.1-0.6) 10/08/16 05:30 Eos # 0.1 (0.0-0.7) 10/08/16 05:30 Baso # 0.02 K/mm3 (0.0-2.0) 10/08/16 05:30 Neutrophils % (Manual) 38 % (50.0-70.0) L 10/09/16 05:00 Lymphocytes % (Manual) 50 % (22.0-35.0) H 10/09/16 05:00 Monocytes % (Manual) 8 % (1.0-6.0) H 10/09/16 05:00 Eosinophils % (Manual) 4 % (0.0-3.0) H 10/09/16 05:00 Platelet Evaluation Normal (NORMAL) 10/09/16 05:00 Sodium 130 mmol/L (132-148) L 10/09/16 05:00 Potassium 4.3 mmol/L (3.6-5.0) 10/09/16 05:00 Chloride 99 mmol/L (95-110) 10/09/16 05:00 Carbon Dioxide 27 mmol/L (21-33) 10/09/16 05:00 Anion Gap 8 (10-20) L 10/09/16 05:00 BUN 16 mg/dL (7-21) 10/09/16 05:00 Creatinine 0.9 mg/dL (0.5-1.4) 10/09/16 05:00 Est GFR ( Amer) > 60 10/09/16 05:00 Est GFR (Non-Af Amer) > 60 10/09/16 05:00 Random Glucose 91 mg/dL (70-110) 10/09/16 05:00 Serum Osmolality 270 mosm/kg (271-296) L 10/07/16 04:00 Calcium 8.5 mg/dL (8.4-10.5) 10/09/16 05:00 Total Bilirubin 0.6 mg/dL (0.2-1.3) 10/06/16 19:56 AST 24 U/L (15-39) 10/06/16 19:56 ALT 30 U/L (7-56) 10/06/16 19:56 Alkaline Phosphatase 77 U/L (38-133) 10/06/16 19:56 Total Protein 7.7 g/dL (5.8-8.3) 10/06/16 19:56 Albumin 4.2 g/dL (3.0-4.8) 10/06/16 19:56 Globulin 3.5 gm/dL 10/06/16 19:56 Albumin/Globulin Ratio 1.2 (1.1-1.8) 10/06/16 19:56 TSH 3rd Generation 1.75 mIU/mL (0.46-4.68) 10/07/16 08:33 Urine Color Yellow (YELLOW) 10/08/16 11:00 Urine Appearance Clear (CLEAR) 10/08/16 11:00 Urine pH 7.0 (4.7-8.0) 10/08/16 11:00 Ur Specific [place] <= 1.005 (1.005-1.035) 10/08/16 11:00 Urine Protein Negative mg/dL (<30 mg/dL) 10/08/16 11:00 Urine Glucose (UA) Negative mg/dL (NEGATIVE) 10/08/16 11:00 Urine Ketones Negative mg/dL (NEGATIVE) 10/08/16 11:00 Urine Blood Negative (NEGATIVE) 10/08/16 11:00 Urine Nitrate Negative (NEGATIVE) 10/08/16 11:00 Urine Bilirubin Negative (NEGATIVE) 10/08/16 11:00 Urine Urobilinogen 0.2 E.U./dL (<1 E.U./dL) 10/08/16 11:00 Ur Leukocyte Esterase Negative [place]/uL (NEGATIVE) 10/08/16 11:00 Urine RBC 1 - 3 /hpf (0-2) 10/06/16 21:53 Urine WBC 2 - 5 /hpf (0-6) 10/06/16 21:53 Urine Osmolality 178 mosm/kg (50-645) 10/08/16 11:00 Ur Random Sodium 10 meq/L 10/08/16 11:00 Salicylates < 1 mg/dL (2.0-20.0) L 10/06/16 19:56 Urine Opiates Screen Negative (NEGATIVE) 10/06/16 21:53 Urine Methadone Screen Negative (NEGATIVE) 10/06/16 21:53 Acetaminophen < 10.0 ug/ml (10.0-20.0) L 10/06/16 19:56 Ur Barbiturates Screen Negative (NEGATIVE) 10/06/16 21:53 Valproic Acid 25 ug/mL (50.0-100.0) L 10/07/16 10:48 Ur Phencyclidine Scrn Negative (NEGATIVE) 10/06/16 21:53 Ur Amphetamines Screen Negative (NEGATIVE) 10/06/16 21:53 U Benzodiazepines Scrn Positive (NEGATIVE) H 10/06/16 21:53 U Oth Cocaine Metabols Negative (NEGATIVE) 10/06/16 21:53 U Cannabinoids Screen Negative (NEGATIVE) 10/06/16 21:53 Alcohol, Quantitative < 10 mg/dL (0-10) 10/06/16 19:56 - Hospital Course Hospital Course: 66F with pmhx of bipolar or schizoaffective disorder, was brought in for agitation at home. 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 On floors, treated with D5w at 100cc/hr and fluid restriction. Pt put back on home medications of seroquel, valproic acid, and xanax. d5w taken off at [place] of sodium level at 130. Repeat U/A negative for RBCs. Na at 130. Renal u/s w/o positive findings. Mild ESTEFANI treated and resolved with NS IV at 100cc/hr. As sodium level improved, pt mental status improved to baseline. Pt d/c in fair condition with following instructions: You are discharged home. Follow-up with Dr. Dixon one week after discharge. Follow-up with your primary care physician within one week after discharge. Please continue your home medications. Please continue fluid restriction of one liter of liquids per day. Please return to the emergency department for worsening of symptoms. Discharge Exam - Head Exam Head Exam: ATRAUMATIC, NORMOCEPHALIC - Eye Exam Eye Exam: EOMI, Normal appearance Pupil Exam: NORMAL ACCOMODATION, PERRL - Respiratory Exam Respiratory Exam: NORMAL BREATHING PATTERN, UNREMARKABLE - Cardiovascular Exam Cardiovascular Exam: +S1, +S2. absent: Tachycardia - GI/Abdominal Exam GI & Abdominal Exam: Soft. absent: Tenderness - Exam External exam: absent: Erythema, Lacerations - Extremities Exam Extremities exam: normal capillary refill, pedal pulses present - Psychiatric Exam Psychiatric exam: Flat Affect - Skin Skin Exam: Intact, Normal Color Discharge Plan - Follow Up Plan Condition: FAIR Disposition: HOME/ ROUTINE Instructions: Hyponatremia (DC), Hyponatremia (GEN) Additional Instructions: You are discharged home. Follow-up with Dr. Dixon one week after discharge. Follow-up with your primary care physician within one week after discharge. Please continue your home medications. Please continue fluid restriction of one liter of liquids per day. Please return to the emergency department for worsening of symptoms. Referrals: Harley Mortensen MD [Primary Care Provider] - Alexis Dixon MD [Staff Provider] - <Mickey Castro - Last Filed: 10/09/16 13:33> Provider - Provider Date of Admission: 10/06/16 21:29 Attending physician: Mickey Castro MD Primary care physician: Harley Mortensen MD Hospital Course - Lab Results Lab Results: Micro Results 10/06/16 21:53 Urine,Clean Catch Urine Culture - Final No Growth (<1,000 CFU/ML) Most Recent Lab Values WBC 4.8 10^3/ul (4.5-11.0) D 10/09/16 05:00 RBC 4.44 10^6/uL (3.5-6.1) 10/09/16 05:00 Hgb 12.0 gm/dL (12.0-16.0) 10/09/16 05:00 Hct 35.9 % (36.0-48.0) L 10/09/16 05:00 MCV 80.9 fL (80.0-105.0) 10/09/16 05:00 MCH 27.0 pg (25.0-35.0) 10/09/16 05:00 MCHC 33.4 g/dl (31.0-37.0) 10/09/16 05:00 RDW 15.3 % (11.5-14.5) H 10/09/16 05:00 Plt Count 186 10^3/uL (120.0-450.0) 10/09/16 05:00 MPV 9.1 fl (7.0-11.0) 10/09/16 05:00 Gran % 43.5 % (50.0-68.0) L 10/08/16 05:30 Lymph % (Auto) 44.9 % (22.0-35.0) H 10/08/16 05:30 [place] % (Auto) 9.3 % (1.0-6.0) H 10/08/16 05:30 Eos % (Auto) 2.0 % (1.5-5.0) 10/08/16 05:30 Baso % (Auto) 0.3 % (0.0-3.0) 10/08/16 05:30 Gran # 2.65 (1.4-6.5) 10/08/16 05:30 Lymph # 2.7 (1.2-3.4) 10/08/16 05:30 [place] # 0.6 (0.1-0.6) 10/08/16 05:30 Eos # 0.1 (0.0-0.7) 10/08/16 05:30 Baso # 0.02 K/mm3 (0.0-2.0) 10/08/16 05:30 Neutrophils % (Manual) 38 % (50.0-70.0) L 10/09/16 05:00 Lymphocytes % (Manual) 50 % (22.0-35.0) H 10/09/16 05:00 Monocytes % (Manual) 8 % (1.0-6.0) H 10/09/16 05:00 Eosinophils % (Manual) 4 % (0.0-3.0) H 10/09/16 05:00 Platelet Evaluation Normal (NORMAL) 10/09/16 05:00 Sodium 130 mmol/L (132-148) L 10/09/16 05:00 Potassium 4.3 mmol/L (3.6-5.0) 10/09/16 05:00 Chloride 99 mmol/L (95-110) 10/09/16 05:00 Carbon Dioxide 27 mmol/L (21-33) 10/09/16 05:00 Anion Gap 8 (10-20) L 10/09/16 05:00 BUN 16 mg/dL (7-21) 10/09/16 05:00 Creatinine 0.9 mg/dL (0.5-1.4) 10/09/16 05:00 Est GFR ( Amer) > 60 10/09/16 05:00 Est GFR (Non-Af Amer) > 60 10/09/16 05:00 Random Glucose 91 mg/dL (70-110) 10/09/16 05:00 Serum Osmolality 270 mosm/kg (271-296) L 10/07/16 04:00 Calcium 8.5 mg/dL (8.4-10.5) 10/09/16 05:00 Total Bilirubin 0.6 mg/dL (0.2-1.3) 10/06/16 19:56 AST 24 U/L (15-39) 10/06/16 19:56 ALT 30 U/L (7-56) 10/06/16 19:56 Alkaline Phosphatase 77 U/L (38-133) 10/06/16 19:56 Total Protein 7.7 g/dL (5.8-8.3) 10/06/16 19:56 Albumin 4.2 g/dL (3.0-4.8) 10/06/16 19:56 Globulin 3.5 gm/dL 10/06/16 19:56 Albumin/Globulin Ratio 1.2 (1.1-1.8) 10/06/16 19:56 TSH 3rd Generation 1.75 mIU/mL (0.46-4.68) 10/07/16 08:33 Urine Color Yellow (YELLOW) 10/08/16 11:00 Urine Appearance Clear (CLEAR) 10/08/16 11:00 Urine pH 7.0 (4.7-8.0) 10/08/16 11:00 Ur Specific [place] <= 1.005 (1.005-1.035) 10/08/16 11:00 Urine Protein Negative mg/dL (<30 mg/dL) 10/08/16 11:00 Urine Glucose (UA) Negative mg/dL (NEGATIVE) 10/08/16 11:00 Urine Ketones Negative mg/dL (NEGATIVE) 10/08/16 11:00 Urine Blood Negative (NEGATIVE) 10/08/16 11:00 Urine Nitrate Negative (NEGATIVE) 10/08/16 11:00 Urine Bilirubin Negative (NEGATIVE) 10/08/16 11:00 Urine Urobilinogen 0.2 E.U./dL (<1 E.U./dL) 10/08/16 11:00 Ur Leukocyte Esterase Negative [place]iki/uL (NEGATIVE) 10/08/16 11:00 Urine RBC 1 - 3 /hpf (0-2) 10/06/16 21:53 Urine WBC 2 - 5 /hpf (0-6) 10/06/16 21:53 Urine Osmolality 178 mosm/kg (50-645) 10/08/16 11:00 Ur Random Sodium 10 meq/L 10/08/16 11:00 Salicylates < 1 mg/dL (2.0-20.0) L 10/06/16 19:56 Urine Opiates Screen Negative (NEGATIVE) 10/06/16 21:53 Urine Methadone Screen Negative (NEGATIVE) 10/06/16 21:53 Acetaminophen < 10.0 ug/ml (10.0-20.0) L 10/06/16 19:56 Ur Barbiturates Screen Negative (NEGATIVE) 10/06/16 21:53 Valproic Acid 25 ug/mL (50.0-100.0) L 10/07/16 10:48 Ur Phencyclidine Scrn Negative (NEGATIVE) 10/06/16 21:53 Ur Amphetamines Screen Negative (NEGATIVE) 10/06/16 21:53 U Benzodiazepines Scrn Positive (NEGATIVE) H 10/06/16 21:53 U Oth Cocaine Metabols Negative (NEGATIVE) 10/06/16 21:53 U Cannabinoids Screen Negative (NEGATIVE) 10/06/16 21:53 Alcohol, Quantitative < 10 mg/dL (0-10) 10/06/16 19:56 Attending/Attestation - Attestation I have personally seen and examined this patient.: Yes I have fully participated in the care of the patient.: Yes I have reviewed all pertinent clinical information, including history, physical exam and plan: Yes Notes (Text): 10/09/16 13:30 66 year old female with past medical history of prior psychiatric illness (? bipolar vs schizoaffective disorder) who was brought in by her for altered mental status. In the ER she was found to have severe hyponatremia with sodium of 118 which was likely due to psychogenic polydipsia. Her sodium has improved and is stable today. She also had mild ESTEFANI which also improved with IVF. Her is at bedside. Her mental status is returned to baseline. Patient will be discharged home today to follow up with her pmd. Follow up with sheet rock finisher and psychiatrist. Counselled on fluid restriction diet. Recommended to repeat labs with pmd/sheet rock finisher within this week for follow up. Mickey Castro MD Hospitalist.
--- NOTE | 2016-10-09 11:09 | PN ---
DATE: 10/09/2016 The patient was followed up today. Initially, the patient was admitted on the medical floor for low sodium level. Psych consult was called for evaluation of mood symptoms. The patient has history of mental illness and some neurocognitive problems. Initially, the patient was seen by Dr. Vidal. This global technical writer followed up on this patient yesterday. One-to-one was discontinued, medications confirmed. The patient was followed up today. The patient presented to be alert and oriented. The patient know s the circumstances of her admission to the medical side. The patient said "my sodium level was low. " The patient is aware about the treatment plan and about the water restriction. The patient said " I need to have not more than 1 liter a day, I need to have not more than 10 cups of water a day." Th e patient also said, in case of confusion and in case of worsening of her symptoms, she will bring he rself back to the hospital. The patient is not psychotic. The patient is not depressed. The adele steven has followup appointment with Dr. Cox. The patient is compliant with her medication, has support lizeth family. Meanwhile, at present moment, the patient is doing well. VITAL SIGNS: Stable. Temperature 98,0, pulse is 81, blood pressure 110/65, respirations 20, oxygen saturation is 100. MEDICATIONS: Reviewed. Xanax 1 mg at the morning time and 3 mg at the nighttime, Depakote 500 mg tw ice a day. The patient also was started on Haldol 2 mg q. 6 hours as needed for agitation, but crystal dominguez was not agitated and did not require any Haldol. The patient is on Seroquel 400 mg at the nightti me and 200 mg at the morning time and sodium chloride. LABORATORY DATA: Reviewed. Most recent was from today. The patient has sodium level 130, chloride is 99. Urinalysis within normal limits. Toxicology positive for benzodiazepines, which is expected because patient was on Xanax prescribed. MENTAL STATUS EXAMINATION: The patient presented to be alert and oriented. The patient obviously diez s some neurocognitive limitations or low IQ. Fair eye contact. Speech was loud, underproductive, ye s/no answers. Mood described as "I'm fine, I want to go back home." Affect was reactive, mood congr uent. Thought process is concrete. Thought content: The patient denied visual, auditory, or tactil e hallucinations. Denied paranoid ideations. The patient denied thoughts of harming herself or othe rs, denied intent or plan. Insight and judgment are fair. Impulses are well controlled. IMPRESSION: The patient has history of schizoaffective disorder versus bipolar disorder. The patien t has some neurocognitive limitations. The patient was admitted on the medical floor for low sodium level which is getting better. 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 Please see medic al team notes for more detailed information for medical issues. PLAN: The patient has basic understanding of her diagnosis. The patient has basic understanding wha t is going to be her treatment plan. The patient also is aware of the circumstances of her admission to the medical floor. The patient has followup appointment with Dr. Cox. The patient has all of her medications at home. The patient reported that her family is supportive. The patient is not con fused, not agitated. From this global technical writer's perspective, the patient is cleared to go back home. The pa tient does not need to go to psychiatric inpatient unit or screening process for involuntary commitme nt. Continue current management. This global technical writer will sign off. Should you have any questions, give me a call back. Henna Domínguez MD cc: [id number] TT: 10/09/2016 11:08:09 Confirmation # [id number] Dictation # [id number] tn
[2016-10-09 12:46] VITALS: BP 132/82; PULSE 82; RESP 16; TEMP 97.8
== END 2016-10-09 13:33 | disposition home or self-care (01) | DRG 641 ==
LOC: ED 19:04 → ERH 21:29 → 2RNO 10-07 02:45
PROVIDERS: ADMIT Internal Medicine; ATTEND Internal Medicine
DX: E87.1 Hypo-osmolality and hyponatremia (principal); N17.9 Acute kidney failure, unspecified; F25.9 Schizoaffective disorder, unspecified; R82.1 Myoglobinuria; F31.60 Bipolar disorder, current episode mixed, unspecified; F41.9 Anxiety disorder, unspecified; R63.1 Polydipsia; Z79.899 Other long term (current) drug therapy; Z86.010 Personal history of colon polyps; F17.210 Nicotine dependence, cigarettes, uncomplicated; Z91.14 Patient's other noncompliance with medication regimen; F90.9 Attention-deficit hyperactivity disorder, unspecified type; K59.00 Constipation, unspecified; T22.00XA Burn of unspecified degree of shoulder and upper limb, except wrist and hand, unspecified site, initial encounter; X58.XXXA Exposure to other specified factors, initial encounter

== ENCOUNTER 2016-10-13 10:02 | Emergency (ER) | payer MEDICARE, OTHER ==
[2016-10-13 10:02] VITALS: BMI 30.9
[2016-10-13 10:14] VITALS: O2SAT 98
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
--- NOTE | 2016-10-13 11:08 | RAD ---
PROCEDURE: CHEST RADIOGRAPH, 1 VIEW HISTORY: PES eval COMPARISON: None available. FINDINGS: LUNGS: Clear. PLEURA: No pneumothorax or pleural fluid seen. CARDIOVASCULAR: Normal. OSSEOUS STRUCTURES: No significant abnormalities. VISUALIZED UPPER ABDOMEN: Normal. OTHER FINDINGS: None. IMPRESSION: No active disease.
[2016-10-13 11:19] LABS: ADD MANUAL DIFF? NO
[2016-10-13 11:21] LABS: BASO # 0.01 K/mm3 (0.0-2.0); BASO % 0.1 % (0.0-3.0); EOS % 0.2 % (1.5-5.0); GRAN # 7.49 (1.4-6.5); GRAN % 84.5 % (50.0-68.0); HEMATOCRIT 42.9 % (36.0-48.0); LYMPH % 10.7 % (22.0-35.0); MEAN CORPUSCULAR HEMOGLOBIN 28.2 pg (25.0-35.0); MEAN CORPUSCULAR HGB CONC 35.2 g/dl (31.0-37.0); MEAN PLATELET VOLUME 9.3 fl (7.0-11.0); MONO # 0.4 (0.1-0.6); MONO % 4.5 % (1.0-6.0); PLATELET COUNT 237 10^3/uL (120.0-450.0); RED CELL DISTRIBUTION WIDTH 14.8 % (11.5-14.5); WHITE BLOOD COUNT 8.9 10^3/ul (4.5-11.0)
[2016-10-13 11:22] LABS: PH,URINE 6.5 (4.7-8.0); URINE BILIRUBIN NEGATIVE (NEGATIVE); URINE BLOOD NEGATIVE (NEGATIVE); URINE GLUCOSE (UA) NEGATIVE (NEGATIVE); URINE KETONE NEGATIVE (NEGATIVE); URINE LEUKOCYTE ESTERASE LARGE Leu/uL (NEGATIVE); URINE PROTEIN NEGATIVE mg/dL (<30 mg/dL); URINE UROBILINOGEN 0.2 E.U./dL (<1 E.U./dL)
[2016-10-13 11:24] LABS: URINE APPEARANCE CLEAR (CLEAR); URINE COLOR LIGHT YELLOW (YELLOW)
[2016-10-13 11:25] LABS: URINE BACTERIA MOD (NEG); URINE RBC NEGATIVE /hpf (0-2)
[2016-10-13 11:32] LABS: ALB/GLOB RATIO 1.1 (1.1-1.8); ALKALINE PHOSPHATASE 82 U/L (38-133); ALT/SGPT 29 U/L (7-56); AST/SGOT 22 U/L (15-39); BILIRUBIN,TOTAL 0.5 mg/dL (0.2-1.3); BLOOD UREA NITROGEN 13 mg/dL (7-21); CALCIUM 9.5 mg/dL (8.4-10.5); CARBON DIOXIDE 30 mmol/L (21-33); CHLORIDE 89 mmol/L (95-110); GFR AFRICAN-AMERICAN > 60; GLUCOSE,RANDOM 95 mg/dL (70-110); POTASSIUM 4.4 mmol/L (3.6-5.0); SODIUM 129 mmol/L (132-148); TOTAL PROTEIN 8.2 g/dL (5.8-8.3)
[2016-10-13 13:59] VITALS: RESP 18
[2016-10-13 15:47] VITALS: BP 139/88; PULSE 82; TEMP 98.8
== END 2016-10-13 15:49 | disposition home or self-care (01) ==
LOC: ED 10:02
DX: F31.9 Bipolar disorder, unspecified (principal); K59.00 Constipation, unspecified
CPT/HCPCS: 71010; 80053; 81001; 85025; 87086; 99284; G0480